=== PATIENT | female | born 1940 | race Caucasian/White ===

== ENCOUNTER 2020-07-14 12:11 | Outpatient (REF) | payer MEDICARE, SELFPAY ==
[2020-07-14 14:06] LABS: Glucose Urine UA NEG (NEG); Leukocyte Esterase Urine TRACE (NEG); Nitrite Urine POS (NEG); Specific Gravity - Urine 1.025 (1.005-1.025); Urine Blood NEG (NEG); Urine Ketones NEG (NEG); Urine Protein NEG (NEG-TRACE)
[2020-07-14 14:08] LABS: Appearance Urine CLEAR; Color Urine YELLOW
[2020-07-14 14:16] LABS: Bacteria Urine 2+ /LPF; RBC Urine 0 /HPF (0); Squamous Epithelial Cell Urine TRACE /LPF
[2020-07-14 14:59] LABS: Creatinine Urine 45.67 mg/dL; Microalbum/Creatinine Ratio Ur 273.7 ug/mg cr
== END 2020-07-14 12:12 | disposition home or self-care (01) ==
LOC: HO.WFDLNP 12:11
PROVIDERS: Visit Provider Family Medicine
DX: Z13.9 Encounter for screening, unspecified (principal)
CPT/HCPCS: 81001; 81003; 82043